=== PATIENT | female | born 1975 | race Caucasian/White ===

== ENCOUNTER 2018-12-19 15:16 | Inpatient (IN) | payer BC ==
[~2018-12-19] VITALS: Ht 172.7 cm; Wt 172.4 kg
[2018-12-19] MEDS ORDERED: methylPREDNISolone SOD SUCC 125 MG/2 ML ONE (15:40)
[2018-12-19] MEDS ORDERED: IBUPROFEN 600 MG TABLET ONE (15:41)
[2018-12-19] MEDS ORDERED: ALBUTEROL/IPRATROPIUM 2.5MG/0.5MG, 3 ML ONE (15:42)
--- NOTE | 2018-12-19 15:52 | NUR ---
RT TO BEDSIDE TO COMPLETE TREATMENT. LABS COLLECTED AND 1 SSET CULTURES. ATTEMPTING IV AT THIS TIME. PT MEDICATED FOR FEVER
[2018-12-19 15:57] LABS: BASOPHILS # (AUTO) 0.01 x10^3/uL (0-0.1); BASOPHILS % (AUTO) 0 % (0-1); EOSINOPHILS % (AUTO) 0 % (1-7); LYMPHOCYTES # (AUTO) 1.17 x10^3/uL (1-3.4); LYMPHOCYTES % (AUTO) 7 % (22-44); MD NO; MEAN CORPUSCULAR HEMOGLOBIN 26.3 pg (27.0-34.8); MEAN CORPUSCULAR HGB CONC 33.3 g/dL (32.4-35.8); MEAN CORPUSCULAR VOLUME 78.9 fL (80-100); MEAN PLATELET VOLUME 7.9 fL (7.4-10.4); MONOCYTES # (AUTO) 0.53 x10^3/uL (0.2-0.8); MONOCYTES % (AUTO) 3 % (2-9); NEUTROPHILS # (AUTO) 14.15 x10^3/uL (1.8-6.8); NEUTROPHILS % (AUTO) 89 % (42-75); PLATELET COUNT 287 x10^3/uL (130-400); RED BLOOD COUNT 4.54 x10^6/uL (3.82-5.3); RED CELL DISTRIBUTION WIDTH 15.5 % (9.6-15.2)
[2018-12-19] MEDS ORDERED: methylPREDNISolone SOD SUCC 125 MG/2 ML IVP ONE (16:00)
[2018-12-19] MEDS ORDERED: IBUPROFEN 600 MG TABLET PO ONE (16:00)
[2018-12-19] MEDS ORDERED: ALBUTEROL/IPRATROPIUM 2.5MG/0.5MG, 3 ML NPPB ONE (16:00)
[2018-12-19] MEDS ORDERED: SODIUM CHLORIDE 0.9% 1,000ML IVBOLUS ONE (16:00)
[2018-12-19] MEDS ORDERED: SODIUM CHLORIDE FLUSH 10ML SYR IVF ONE (16:00)
[2018-12-19 16:09] LABS: ALANINE AMINOTRANSFERASE 38 U/L (12-78); ALBUMIN 3.1 g/dL (3.4-5.0); ANION GAP 8 mmol/L (5-15); CALCIUM 8.1 mg/dL (8.5-10.1); CHLORIDE 104 mmol/L (98-107)
[2018-12-19 16:13] LABS: ALKALINE PHOSPHATASE 124 U/L (45-117); BILIRUBIN,TOTAL 0.3 mg/dL (0.2-1.0); TOTAL PROTEIN 7.7 g/dL (6.4-8.2); TROPONIN I < 0.015 ng/mL (0.000-0.045)
[2018-12-19] MEDS ORDERED: OMEP40CA6 PO (16:20)
[2018-12-19] MEDS ORDERED: FLUT1AER INH (16:21)
[2018-12-19] MEDS ORDERED: ALBU90AE INH (16:22)
[2018-12-19] MEDS ORDERED: CYAN50008 PO (16:23)
[2018-12-19] MEDS ORDERED: TERB250T14 PO (16:24)
--- NOTE | 2018-12-19 16:42 | NUR ---
MD TO BEDSIDE TO UPDATE PT AND FAMILY ON POC
[2018-12-19] MEDS ORDERED: CEFTRIAXONE PMX 1GM/50ML 50 ML IVPB ONE (17:00)
[2018-12-19] MEDS ORDERED: AZITHROMYCIN 500 MG in SODIUM CHLORIDE 0.9% 250 ML IVPB ONE (17:00)
[2018-12-19] MEDS ORDERED: CEFTRIAXONE PMX 1GM/50ML 50 ML ONE (17:05)
--- NOTE | 2018-12-19 17:12 | NUR ---
HOSPITALIST AT BEDSIDE TO ADMIT PT TO [facility]. ABX STARTED AFTER BLOOD CULTURES DRAWN
[2018-12-19] MEDS ORDERED: SODIUM CHLORIDE FLUSH 10ML SYR IVF PRN (17:30)
[2018-12-19] MEDS ORDERED: IBUPROFEN 600 MG TABLET PO PRN (18:00)
[2018-12-19] MEDS ORDERED: ONDANSETRON ODT 4 MG PO PRN (18:00)
[2018-12-19] MEDS ORDERED: ONDANSETRON 2MG/ML, 2ML IVPush PRN (18:00)
--- NOTE | 2018-12-19 18:15 | NUR ---
PREVIOUSLY PLACED IV INFULTRATED IN RIGHT UPPER ARM. LINE DCd, AND WARM COMPRESS APPLIED TO SITE.
--- NOTE | 2018-12-19 18:22 | NUR ---
REPORT GIVEN TO СВЕТЛАНА [place], PT READY FOR TRANSPORT AFTER ANOTHER IV IS PLACED
--- NOTE | 2018-12-19 18:32 | NUR ---
RN AT BEDSIDE FOR US GUIDED IV PLACEMENT
[2018-12-19 18:33] LABS: HEMOGLOBIN A1C 7.8 % (4.2-6.3)
[2018-12-19 20:00] VITALS: BP 127/74
[2018-12-19] MEDS: DOXYCYCLINE 100 MG in DEXTROSE 5% 250 ML IV SCH (21:28)
[2018-12-19] MEDS: SODIUM CHLORIDE 0.9% 1,000 ML IV SCH (21:28)
[2018-12-19 22:55] LABS: RAPID INFLUENZA A Negative (Negative); RAPID INFLUENZA B Negative (Negative)
[2018-12-20] MEDS ORDERED: ALBUTEROL SULFATE 2.5 MG/3 ML NPPB PRN
[2018-12-20] MEDS: methylPREDNISolone SOD SUCC 125 MG/2 ML IVPush SCH ×2 (00:09→08:38)
[2018-12-20 00:25] VITALS: BP 97/59
[2018-12-20 05:56] LABS: MEAN CORPUSCULAR HEMOGLOBIN 26.3 pg (27.0-34.8); MEAN CORPUSCULAR HGB CONC 32.7 g/dL (32.4-35.8); MEAN CORPUSCULAR VOLUME 80.4 fL (80-100); MEAN PLATELET VOLUME 8.1 fL (7.4-10.4); PLATELET COUNT 288 x10^3/uL (130-400); RED BLOOD COUNT 4.92 x10^6/uL (3.82-5.3); RED CELL DISTRIBUTION WIDTH 15.9 % (9.6-15.2)
[2018-12-20 06:06] LABS: ALANINE AMINOTRANSFERASE 36 U/L (12-78); ANION GAP 9 mmol/L (5-15); CALCIUM 8.4 mg/dL (8.5-10.1); CHLORIDE 106 mmol/L (98-107); CHOLESTEROL, TOTAL 151 mg/dL (140-239)
[2018-12-20 06:16] LABS: ALKALINE PHOSPHATASE 125 U/L (45-117); BILIRUBIN,TOTAL 0.3 mg/dL (0.2-1.0); CHOL/HDL RATIO 4.4; HDL CHOL % 23 % (28-40); HDL CHOLESTEROL (DIRECT) 34 mg/dL (40-60); LDL CHOLESTEROL,CALCULATED 104 mg/dL (54-169); LDL/HDL RATIO 3.1 (0.5-3.0); TOTAL PROTEIN 7.9 g/dL (6.4-8.2); TRIGLYCERIDES 67 mg/dL (50-200); VLDL CHOLESTEROL 13 mg/dL (0-25)
[2018-12-20 06:19] LABS: BASOPHILS # (AUTO) 0.03 x10^3/uL (0-0.1); BASOPHILS % (AUTO) 0 % (0-1); EOSINOPHILS % (AUTO) 0 % (1-7); LYMPHOCYTES # (AUTO) 1.98 x10^3/uL (1-3.4); LYMPHOCYTES % (AUTO) 10 % (22-44); MD SCAN; MONOCYTES # (AUTO) 0.39 x10^3/uL (0.2-0.8); MONOCYTES % (AUTO) 2 % (2-9); NEUTROPHILS # (AUTO) 17.34 x10^3/uL (1.8-6.8); NEUTROPHILS % (AUTO) 88 % (42-75)
[2018-12-20 07:58] VITALS: BP 115/68
[2018-12-20] MEDS: OMEPRAZOLE 20 MG CAPSULE.DR PO SCH (08:38)
[2018-12-20] MEDS: ENOXAPARIN 40 MG/0.4 ML SQ SCH (08:39)
[2018-12-20] MEDS: DOXYCYCLINE 100 MG in DEXTROSE 5% 250 ML IV SCH ×2 (08:39→21:19)
[2018-12-20] MEDS ORDERED: FLUTICASONE/VILANTEROL 100-25MCG/INH INH SCH (09:00)
[2018-12-20] MEDS ORDERED: CYANOCOBALAMIN 1,000 MCG TABLET PO SCH (09:00)
[2018-12-20] MEDS: ALBUTEROL SULFATE 2.5MG/0.5ML NPPB SCH ×3 (09:30→20:49)
[2018-12-20 13:33] VITALS: BP 138/71
[2018-12-20] MEDS: INSULIN LISPRO 100 UNITS/ML, PEN SQ-INSULIN SCH ×3 (14:25→21:33)
[2018-12-20] MEDS: SODIUM CHLORIDE 0.9% 1,000 ML IV SCH (14:26)
[2018-12-20] MEDS: CEFTRIAXONE PMX 1GM/50ML 50 ML IV SCH (18:05)
[2018-12-20 20:00] VITALS: BP 114/66
[2018-12-20] MEDS: BUDESONIDE 0.5 MG/2 ML INHA NPPB SCH (20:49)
[2018-12-21] MEDS: ACETAMINOPHEN 325 MG TABLET PO PRN ×3 (00:24→21:58)
[2018-12-21 01:24] VITALS: BP 118/73
[2018-12-21] MEDS: DOXYCYCLINE 100MG TABLET PO SCH ×3 (02:16→21:40)
[2018-12-21 05:35] LABS: MEAN CORPUSCULAR HEMOGLOBIN 26.3 pg (27.0-34.8); MEAN CORPUSCULAR VOLUME 79.6 fL (80-100); MEAN PLATELET VOLUME 8.3 fL (7.4-10.4); PLATELET COUNT 316 x10^3/uL (130-400); RED BLOOD COUNT 4.32 x10^6/uL (3.82-5.3); RED CELL DISTRIBUTION WIDTH 15.9 % (9.6-15.2)
[2018-12-21 05:38] LABS: ANION GAP 6 mmol/L (5-15); CALCIUM 8.7 mg/dL (8.5-10.1); CHLORIDE 109 mmol/L (98-107); CREATININE 0.88 mg/dL (0.55-1.02)
[2018-12-21 06:06] LABS: BASOPHILS # (AUTO) 0.04 x10^3/uL (0-0.1); BASOPHILS % (AUTO) 0 % (0-1); EOSINOPHILS % (AUTO) 0 % (1-7); LYMPHOCYTES # (AUTO) 2.32 x10^3/uL (1-3.4); LYMPHOCYTES % (AUTO) 11 % (22-44); MD SCAN; MONOCYTES # (AUTO) 0.71 x10^3/uL (0.2-0.8); MONOCYTES % (AUTO) 3 % (2-9); NEUTROPHILS # (AUTO) 18.33 x10^3/uL (1.8-6.8); NEUTROPHILS % (AUTO) 86 % (42-75)
[2018-12-21 06:45] VITALS: BP 117/71
[2018-12-21] MEDS: INSULIN LISPRO 100 UNITS/ML, PEN SQ-INSULIN SCH ×4 (07:00→21:41)
[2018-12-21] MEDS: GUAIFENESIN 200 MG TABLET PO SCH ×4 (08:26→21:40)
[2018-12-21] MEDS: CYANOCOBALAMIN 1,000 MCG TABLET PO SCH (08:27)
[2018-12-21] MEDS: OMEPRAZOLE 20 MG CAPSULE.DR PO SCH (08:27)
[2018-12-21] MEDS: ENOXAPARIN 40 MG/0.4 ML SQ SCH (08:28)
[2018-12-21] MEDS: BUDESONIDE 0.5 MG/2 ML INHA NPPB SCH ×2 (11:08→21:40)
[2018-12-21] MEDS: ALBUTEROL SULFATE 2.5MG/0.5ML NPPB SCH ×3 (11:08→21:40)
[2018-12-21 14:04] VITALS: BP 110/68
[2018-12-21] MEDS: methylPREDNISolone SOD SUCC 125 MG/2 ML IVPush SCH ×2 (15:33→23:22)
[2018-12-21] MEDS: CEFTRIAXONE PMX 1GM/50ML 50 ML IV SCH ×2 (17:00→23:35)
[2018-12-21 20:33] VITALS: BP 131/77
[2018-12-21] MEDS ORDERED: INSULIN GLARGINE 100 UNITS/ML, PEN SQ-INSULIN SCH (21:00)
[2018-12-22 02:01] VITALS: BP 121/82
[2018-12-22] MEDS: ALBUTEROL SULFATE 2.5MG/0.5ML NPPB SCH ×2 (03:30→09:30)
[2018-12-22] MEDS: methylPREDNISolone SOD SUCC 125 MG/2 ML IVPush SCH (05:25)
[2018-12-22] MEDS: GUAIFENESIN 200 MG TABLET PO SCH ×2 (05:25→07:55)
[2018-12-22 06:03] LABS: MEAN CORPUSCULAR HEMOGLOBIN 25.9 pg (27.0-34.8); MEAN CORPUSCULAR HGB CONC 32.2 g/dL (32.4-35.8); MEAN CORPUSCULAR VOLUME 80.5 fL (80-100); MEAN PLATELET VOLUME 8.3 fL (7.4-10.4); PLATELET COUNT 322 x10^3/uL (130-400); RED BLOOD COUNT 4.45 x10^6/uL (3.82-5.3); RED CELL DISTRIBUTION WIDTH 15.9 % (9.6-15.2)
[2018-12-22 06:29] LABS: BASOPHILS # (AUTO) 0.02 x10^3/uL (0-0.1); BASOPHILS % (AUTO) 0 % (0-1); EOSINOPHILS # (AUTO) 0.01 x10^3/uL (0-0.4); EOSINOPHILS % (AUTO) 0 % (1-7); LYMPHOCYTES # (AUTO) 1.65 x10^3/uL (1-3.4); LYMPHOCYTES % (AUTO) 12 % (22-44); MD SCAN; MONOCYTES # (AUTO) 0.45 x10^3/uL (0.2-0.8); MONOCYTES % (AUTO) 3 % (2-9); NEUTROPHILS # (AUTO) 12.02 x10^3/uL (1.8-6.8); NEUTROPHILS % (AUTO) 85 % (42-75)
[2018-12-22 07:12] VITALS: BP 126/71
[2018-12-22] MEDS: ENOXAPARIN 40 MG/0.4 ML SQ SCH (07:54)
[2018-12-22] MEDS: DOXYCYCLINE 100MG TABLET PO SCH (07:54)
[2018-12-22] MEDS: INSULIN LISPRO 100 UNITS/ML, PEN SQ-INSULIN SCH ×2 (07:54→12:29)
[2018-12-22] MEDS: CYANOCOBALAMIN 1,000 MCG TABLET PO SCH (07:55)
[2018-12-22] MEDS: OMEPRAZOLE 20 MG CAPSULE.DR PO SCH (07:56)
[2018-12-22] MEDS: BUDESONIDE 0.5 MG/2 ML INHA NPPB SCH (09:00)
[2018-12-22] MEDS ORDERED: INSULIN GLARGINE 100 UNITS/ML, PEN SQ-INSULIN SCH (09:00)
[2018-12-22] MEDS ORDERED: TIOT18CA INH (11:02)
[2018-12-22] MEDS ORDERED: PRED20TA PO (11:02)
[2018-12-22] MEDS ORDERED: GUAI200T3 PO (11:02)
[2018-12-22] MEDS ORDERED: DOXY100T PO (11:02)
[2018-12-22] MEDS ORDERED: CEFD300C37 PO (11:02)
[2018-12-22] MEDS ORDERED: INSU100I11 SQ-INSULIN (11:02)
[2018-12-22] MEDS ORDERED: METF500T17 PO (11:13)
[2018-12-22 12:53] VITALS: BP 147/76
== END 2018-12-22 14:03 | disposition home or self-care (01) | DRG 871 ==
LOC: ED 16:40 → EDIP 17:11 → 3NE 19:13
PROVIDERS: ADMIT Internal Medicine; ATTEND Internal Medicine
DX: A41.9 Sepsis, unspecified organism (principal); J15.9 Unspecified bacterial pneumonia; J96.01 Acute respiratory failure with hypoxia; N17.0 Acute kidney failure with tubular necrosis; E87.1 Hypo-osmolality and hyponatremia; J45.901 Unspecified asthma with (acute) exacerbation; Z68.43 Body mass index [BMI] 50.0-59.9, adult; E11.65 Type 2 diabetes mellitus with hyperglycemia; E66.9 Obesity, unspecified; K21.9 Gastro-esophageal reflux disease without esophagitis; T38.0X5A Adverse effect of glucocorticoids and synthetic analogues, initial encounter; Z79.84 Long term (current) use of oral hypoglycemic drugs; Z83.3 Family history of diabetes mellitus; Z90.49 Acquired absence of other specified parts of digestive tract; Y92.89 Other specified places as the place of occurrence of the external cause
CPT/HCPCS: 36415; 84145; 87400; 99285; J7611; J7620; J7626; 71045; 80048; 80053; 80061; 82962; 83036; 83605; 84443; 84484; 85025; 87040; 87070; 87081; 87205; 87880; 93005; 94640; 96361; 96365; G0378; J0696; J1650; J7060; J1815; J2930; J7030; J7512